=== PATIENT | female | born 1940 | race African-American/Black ===

== ENCOUNTER 2022-04-17 12:39 | Inpatient (IN) | payer MEDICAID, MEDICARE ==
[~2022-04-17] VITALS: Ht 152.4 cm; Wt 68.0 kg
--- NOTE | 2022-04-17 12:40 | NUR ---
MARINE ALS TAKEN TO BED 7
[2022-04-17 12:49] VITALS: BP 91/67
--- NOTE | 2022-04-17 12:49 | NUR ---
81 Y/O FEMALE BIBA HOME C/O WEAKNESS AND HIGH BLOOD GLUCOSE. BS AT [facility] WAS TOO HIGH, BS ON SCENE WAS TOO HIGH, TRIAGE BS WAS ALSO TOO HIGH. SKIN WARM AND DRY TO TOUCH. DENIES PAIN, N/V/D. AOX4. RESPERATIONS EVEN AND UNLABORED. NKA PMH: DM 2, HDL, HTN
[2022-04-17] MEDS ORDERED: NACL 0.9% 1,000 ML IV ONE ×2 (12:55→15:35)
--- NOTE | 2022-04-17 13:37 | NUR ---
PT AMBULATED TO BATHROOM WITH ASSISTANCE
--- NOTE | 2022-04-17 13:54 | NUR ---
XRAY AT BEDSIDE
--- NOTE | 2022-04-17 14:12 | NUR ---
LAB AT BEDSIDE
--- NOTE | 2022-04-17 14:20 | NUR ---
DR BEE AT BEDSIDE FOR EVAL
[2022-04-17 14:26] LABS: APPEARANCE,URINE CLEAR (CLEAR); BILIRUBIN,URINE NEGATIVE (NEGATIVE); BLOOD, URINE TRACE-I (NEGATIVE); COLOR,URINE YELLOW (YELLOW); LEUKOCYTE ESTERASE ,URINE NEGATIVE (NEGATIVE); NITRITE, URINE NEGATIVE (NEGATIVE); PH,URINE 5.5 (5.0-9.0); UGLUCOSE 3+ (NEGATIVE)
[2022-04-17 14:29] LABS: BASOPHILS % (AUTO) 0.4 % (0.0-2.0); EOSINOPHILS # (AUTO) 0.1 K/uL (0-0.4); HEMATOCRIT 35.8 % (36-48); HEMOGLOBIN 11.5 g/dL (12.0-16.0); LYMPHOCYTES # (AUTO) 1.6 K/uL (2.5-16.5); LYMPHOCYTES % (AUTO) 25.2 % (20.5-51.1); MEAN CORPUSCULAR HEMOGLOBIN 24 pg (27-31); MEAN CORPUSCULAR HGB CONC 32 g/dL (33-37); MEAN CORPUSCULAR VOLUME 76.1 fL (80-94); MONOCYTES # (AUTO) 0.5 K/uL (0.8-1.0); MONOCYTES % (AUTO) 7.4 % (1.7-9.3); NEUTROPHILS # (AUTO) 4.3 K/uL (1.8-7.7); PLATELET COUNT (AUTO) 178 K/uL (140-450); WHITE BLOOD COUNT (AUTO) 6.5 K/uL (4.8-10.8)
[2022-04-17 14:45] LABS: RBC,URINE NONE SEEN /HPF (0-5); WBC,URINE NONE SEEN /HPF (0-5)
[2022-04-17 14:46] LABS: TRICHOMONAS,URINE None Seen /HPF (None Seen); YEAST,URINE None Seen /HPF (None Seen)
[2022-04-17 15:24] LABS: ANION GAP 20.8 (8-16); CARBON DIOXIDE 20.6 mmol/L (21-32); CHLORIDE 94 mmol/L (98-107); CREATININE 2.1 mg/dL (0.6-1.3); POTASSIUM 4.4 mmol/L (3.5-5.1); SODIUM SERUM 131 mmol/L (136-145); UREA NITROGEN, BLOOD 54 mg/dL (7-18)
[2022-04-17 15:26] LABS: ALBUMIN 3.4 g/dL (3.4-5.0); ASPARTATE AMINOTRANSFERASE 19 U/L (15-37); GLUCOSE 673 mg/dL (74-106); TOTAL BILIRUBIN 0.3 mg/dL (0.0-1.0)
[2022-04-17] MEDS ORDERED: POTASSIUM CHLORIDE 10 MEQ TABER PO ONE (15:35)
[2022-04-17] MEDS ORDERED: INSULIN REGULAR, HUMAN 100 UNIT/ML VIAL IV ONE (15:35)
--- NOTE | 2022-04-17 16:34 | NUR ---
PT AMBULATED WITH ASSISTANCE TO BATHROOM
--- NOTE | 2022-04-17 17:10 | NUR ---
DR BEE AT BEDSIDE FOR IV PLACEMENT
--- NOTE | 2022-04-17 17:14 | NUR ---
DEVORA LOZANO AND DR BEE AT BEDSIDE FOR ALLAN GUIDED IV INSERTION
--- NOTE | 2022-04-17 17:45 | NUR ---
CALLED RANDI CLINTON [phone] REGARDING PT STATUS
[2022-04-17] MEDS ORDERED: HYDR25TA32 (17:57)
[2022-04-17] MEDS ORDERED: METF-346 (17:57)
[2022-04-17] MEDS ORDERED: AMLO10TA88 (17:57)
[2022-04-17] MEDS ORDERED: LOSA50TA57 (17:57)
[2022-04-17] MEDS ORDERED: CILO100T (17:57)
[2022-04-17] MEDS ORDERED: PIOG-4 (17:57)
--- NOTE | 2022-04-17 17:57 | NUR ---
PER FAMILY, PT SPEAKS BELLO [employer] FROM THE [facility] [place]
--- NOTE | 2022-04-17 18:19 | NUR ---
PT AMBULATED WITH STEADY GAIT TO BATHROOM
[2022-04-17] MEDS ORDERED: MELATONIN 3 MG TAB PO PRN (18:25)
--- NOTE | 2022-04-17 18:41 | NUR ---
OFFERED PT MELATONIN FOR SLEEP, STATED THAT SHE WANTED THE MEDICATION FOR SLEEP LATER AT AROUND 8-9 PM
--- NOTE | 2022-04-17 19:22 | NUR ---
Pt report given to PAN CHAVEZ. Transfer of care at this time.
[2022-04-17] MEDS ORDERED: MORPHINE SULFATE 2 MG/ML SYR IVP PRN (19:25)
[2022-04-17] MEDS ORDERED: HYDROcodone/APAP 5/325 MG 1 TAB TAB PO PRN (19:25)
--- NOTE | 2022-04-17 19:55 | NUR ---
PROVIDED COMMODE AND WIPES TO PT.
--- NOTE | 2022-04-17 20:06 | NUR ---
Provided bedside commode as request.
[2022-04-17] MEDS: BLOOD GLUCOSE MONITORING 1 DEV DEV FS SCH (21:07)
[2022-04-17] MEDS: INSULIN LISPRO SLIDING SCALE 100 UNITS/ML VIAL SUBQ PRN (21:51)
--- NOTE | 2022-04-17 21:52 | NUR ---
PT STATES SHE IS HUNGRY. OFFERED PT SANDWHICH AND SHE SAID IT WAS TOO COLD. WARMED UP SANDWHICH. THEN PT SAID SHE WANTED SOMETHIN ELSE. GAVE PT APPLESAUCE AND CRACKERS AND SHE DIDNT WANT THAT EITHER.
[2022-04-18] MEDS ORDERED: MAGNESIUM OXIDE 400 MG TAB PO PRN (00:10)
[2022-04-18] MEDS ORDERED: ONDANSETRON 4 MG/2 ML VIAL IM/IVP PRN (00:10)
[2022-04-18] MEDS ORDERED: MORPHINE SULFATE 2 MG/ML SYR IVP PRN (00:10)
[2022-04-18] MEDS ORDERED: ACETAMINOPHEN 325 MG TAB PO PRN (00:10)
[2022-04-18] MEDS ORDERED: POTASSIUM CHLORIDE 10 MEQ TABER PO PRN (00:10)
[2022-04-18] MEDS ORDERED: HYDROcodone/APAP 5/325 MG 1 TAB TAB PO PRN (00:10)
[2022-04-18] MEDS ORDERED: DOCUSATE SODIUM 100 MG GELCAP PO PRN (00:10)
[2022-04-18] MEDS ORDERED: SODIUM PHOS / POTASSIUM PHOS 1 PKT PDR PO PRN (00:10)
[2022-04-18 00:37] LABS: MAGNESIUM 2.4 mg/dL (1.8-2.4)
--- NOTE | 2022-04-18 02:09 | NUR ---
Patient appears to be resting comfortably in bed WITH EYES CLOSED. Vital Signs within normal limits. Respirations even and unlabored.
--- NOTE | 2022-04-18 02:27 | NUR ---
Assisted patient to use bedside commode.
--- NOTE | 2022-04-18 07:21 | NUR ---
Pt report given to brigitte. Transfer of care at this time.
[2022-04-18] MEDS: BLOOD GLUCOSE MONITORING 1 DEV DEV FS SCH ×4 (07:35→20:24)
[2022-04-18 08:00] VITALS: BP 154/84
[2022-04-18] MEDS: PANTOPRAZOLE 40 MG TABEC PO SCH (08:12)
--- NOTE | 2022-04-18 08:28 | NUR ---
Patient will be admitted to care of DR. SANCHEZ. Admited to TELEMETRY. Will go to room 124 B. Belongings list completed. Report to HUBER.
--- NOTE | 2022-04-18 08:30 | NUR ---
PT TRANSFERRED FROM ER TO BED 124B. REPORT RECEIVED FROM ER NURSE, ALL CARES ASSUMED. PT AMBULATED TO BED WITH ASSISTANCE. BED IN LOW AND LOCKED POSITION, CALL LIGHT WITHIN REACH.
--- NOTE | 2022-04-18 10:48 | NUR ---
PATIENT HAS BEEN SCREENED AND CATEGORIZED MODERATE NUTRITION RISK. PATIENT WILL BE SEEN WITHIN 3-5 DAYS OF ADMISSION. 04/18/22-04/22/[address]
[2022-04-18] MEDS: INSULIN LISPRO SLIDING SCALE 100 UNITS/ML VIAL SUBQ PRN ×3 (11:50→20:26)
[2022-04-18 12:00] VITALS: BP 166/81
[2022-04-18] MEDS ORDERED: SODIUM PHOS / POTASSIUM PHOS 1 PKT PDR PO SCH (15:50)
[2022-04-18 16:00] VITALS: BP 158/61
[2022-04-18 16:34] LABS: ANION GAP 12.5 (8-16); CARBON DIOXIDE 26.1 mmol/L (21-32); CHLORIDE 107 mmol/L (98-107); CREATININE 1.3 mg/dL (0.6-1.3); GLUCOSE 276 mg/dL (74-106); POTASSIUM 4.6 mmol/L (3.5-5.1); SODIUM SERUM 141 mmol/L (136-145); UREA NITROGEN, BLOOD 24 mg/dL (7-18)
[2022-04-18] MEDS: INSULIN LANTUS 100 UNITS/ML 10 ML VIAL SUBQ SCH (16:41)
[2022-04-18] MEDS: NACL 0.9% 1,000 ML IV SCH (17:06)
--- NOTE | 2022-04-18 19:32 | NUR ---
SBAR REPORT GIVEN TO HUONG JUAREZ, ALL CARES ENDORSED.
--- NOTE | 2022-04-18 19:34 | NUR ---
GET THE REPORT FROM MORNING NURSE, PATIENT IS SITTING ON BED AND HAVING DINNER AT THIS TIME, PATIENT IS ALERT ORIENTED X4, ALL FALL PRECAUTION MEASURE ARE IN PLACE, CALL LIGHT IS WITHIN THE REACH, WILL CONTINUE TO MONITOR PATIENT.
[2022-04-18 20:00] VITALS: BP 155/70
--- NOTE | 2022-04-18 20:31 | NUR ---
PATIENT IS LYING ON BED, VITAL SIGN IS WITHIN THE NORMAL RANGE, NO ANY COMPLAIN OF PAIN OR SHORTNESS OF BREATH AT THIS TIME, PATIENT BLOOD SUGAR IS 248, 4 UNIT INSULIN IS GIVEN PER DOCTOR ORDER, ALL SCHEDULE MEDICATION IS GIVEN PER DOCTOR ORDER, CALL LIGHT IS WITHIN THE REACH, WILL CONTINUE TO MONITOR PATIENT.
--- NOTE | 2022-04-18 23:01 | NUR ---
04/18/2022 RD INITIAL ASSESSMENT COMPLETED PLEASE REFER TO NUTRITION ASSESSMENT UNDER CARE ACTIVITY FOR ESTIMATED NUTRITIONAL NEEDS. 1.CONTINUE WITH CCHO 45 GM AND CARDIAC DIET 2.MONITOR BLOOD GLUCOSE 3.RD TO FOLLOW-UP IN 3-5 DAYS PATIENT IS MODERATE RISK. ZORA MERLOS, RD
[2022-04-19] VITALS: BP 140/80
--- NOTE | 2022-04-19 00:56 | NUR ---
PATIENT IS LYING ON BED, NO ANY COMPLAIN OF PAIN OR SHORTNESS OF BEATH AT THIS TIME ,VITAL SIGN IS WITHIN THE NORMAL RANGE, CALL LIGHT IS WITHIN THE REACH, WILL CONTINUE TO MONITOR PATIENT.
[2022-04-19] MEDS: NACL 0.9% 1,000 ML IV SCH ×2 (02:14→12:01)
[2022-04-19 04:00] VITALS: BP 162/79
--- NOTE | 2022-04-19 05:17 | NUR ---
RE CHECKED PATIENT BLOOD PRESSURE IS 175/79 HR: 86/MIN , MASSAGE DOCTOR STEWART ABOUT PRN MEDICATION AND WAITING FOR HIS RESPONSE, CALL LIGHT IS WITHIN THE REACH, WILL CONTINUE TO MONITOR PATIENT.
--- NOTE | 2022-04-19 05:25 | NUR ---
MASSAGE DOCTOR LAURA ALSO FOR PATIENT BLOOD PRESSURE MEDICATION , WAITING FOR DOCTOR TO RESPONSE, CALL LIGHT IS WITHIN THE REACH, WILL CONTINUE TO MONITOR PATIENT.
--- NOTE | 2022-04-19 05:35 | NUR ---
ASSESS THE PATIENT AND PATIENT IS SITTING ON BED AND BRUISING HER TEETH, ASK PATIENT ABOUT ANY PAIN OR DIZZINESS, PATIENT REPLAYED NO PAIN IM FINE, NO ANY RESPIRATORY DISTRESS NOTED , WILL REASSESS THE PATIENT BLOOD PRESSURE IN 15 MIN,CALL LIGHT IS WITHIN THE REACH, WILL CONTINUE TO MONITOR PATIENT.
[2022-04-19 05:55] LABS: BASOPHILS % (AUTO) 0.6 % (0.0-2.0); EOSINOPHILS # (AUTO) 0.2 K/uL (0-0.4); EOSINOPHILS % (AUTO) 4.8 % (0.0-4.0); HEMATOCRIT 38.2 % (36-48); HEMOGLOBIN 12.2 g/dL (12.0-16.0); LYMPHOCYTES # (AUTO) 1.9 K/uL (2.5-16.5); LYMPHOCYTES % (AUTO) 38.2 % (20.5-51.1); MEAN CORPUSCULAR HEMOGLOBIN 25 pg (27-31); MEAN CORPUSCULAR HGB CONC 32 g/dL (33-37); MEAN CORPUSCULAR VOLUME 76.6 fL (80-94); MONOCYTES # (AUTO) 0.4 K/uL (0.8-1.0); NEUTROPHILS # (AUTO) 2.4 K/uL (1.8-7.7); NEUTROPHILS % (AUTO) 47.4 % (42.2-75.2); PLATELET COUNT (AUTO) 190 K/uL (140-450); RED BLOOD CELL COUNT(AUTO) 4.99 MIL/uL (4.20-5.40); RED CELL DISTRIBUTION WIDTH 16.1 % (11.6-13.7)
[2022-04-19 06:18] LABS: ANION GAP 13.6 (8-16); CARBON DIOXIDE 27.6 mmol/L (21-32); CHLORIDE 107 mmol/L (98-107); CREATININE 1.2 mg/dL (0.6-1.3); GLUCOSE 175 mg/dL (74-106); POTASSIUM 4.2 mmol/L (3.5-5.1); SODIUM SERUM 144 mmol/L (136-145); UREA NITROGEN, BLOOD 20 mg/dL (7-18)
--- NOTE | 2022-04-19 06:22 | NUR ---
RECHECKED PATIENT BLOOD PRESSURE IS 164/60, HR72/MIN, STILL WAITING FOR DOCTOR STEWART TO RESPONSE, CALL LIGHT IS WITHIN THE REACH, WILL CONTINUE TO MONITOR PATIENT,
[2022-04-19] MEDS: BLOOD GLUCOSE MONITORING 1 DEV DEV FS SCH ×2 (06:35→12:01)
[2022-04-19] MEDS: INSULIN LISPRO SLIDING SCALE 100 UNITS/ML VIAL SUBQ PRN ×2 (06:36→12:29)
--- NOTE | 2022-04-19 06:37 | NUR ---
PATIENT BLOOD SUGAR IS 170, 2 UNIT INSULIN IS GIVEN PER DOCTOR ORDER, , CALL LIGHT IS WITHIN THE REACH, WILL CONTINUE TO MONITOR PATIENT.
[2022-04-19] MEDS ORDERED: hydrALAZINE 20 MG/ML VIAL IVP PRN (06:45)
--- NOTE | 2022-04-19 06:49 | NUR ---
DOCTOR STEWART REPLIED BACK WITH HYDRALAZINE 10MG IVP Q6H PRN FOR SBP >160, WILL FOLLOW THE DOCTOR ORDER, AND CARRIED OUT, CALL LIGHT IS WITHIN THE REACH,WILL CONTINUE TO MONITOR PATIENT.
--- NOTE | 2022-04-19 07:02 | NUR ---
GAVE HYDRALAZINE 10 MG 0.5 ML IV PRN FOR > 160 PER DOCTOR ORDER, WILL REASSESS PATIENT BLOOD PRESSURE IN HOUR, CALL LIGHT IS WITHIN THE REACH, WILL CONTINUE TO MONITOR PATIENT.
--- NOTE | 2022-04-19 07:25 | NUR ---
GAVE THE REPORT TO MORNING NURSE LILA FOR CONTINUOS OF CARE, PATIENT IS STABLE.
--- NOTE | 2022-04-19 07:26 | NUR ---
RECEIVED BEDSIDE REPORT FROM COMMUTATOR INSPECTOR NURSE FOR CONTINUOUS OF CARE, PT ALERT ORIENTED, ABLE TO LET NEEDS KNOWN, PT RESTING, NO DISTRESS NOTED, PT ON ROOM AIR NO SOB NOTED, IV TO LEFT FA 24G PATENT INTACT, RUNNING NS @ 100ML/HR. INITIAL ASSESSMENT DONE, ALL SAFETY PRECAUTION MET, CALL LIGHT WITHIN REACH, WILL CONTINUE TO MONITOR.
[2022-04-19 08:00] VITALS: BP 152/58
[2022-04-19] MEDS ORDERED: hydroCHLOROthiazide 25 MG TAB PO SCH (09:00)
[2022-04-19] MEDS ORDERED: LOSARTAN 50 MG TAB PO SCH (09:00)
[2022-04-19] MEDS: PANTOPRAZOLE 40 MG TABEC PO SCH (09:18)
[2022-04-19] MEDS: INSULIN LANTUS 100 UNITS/ML 10 ML VIAL SUBQ SCH (09:22)
--- NOTE | 2022-04-19 09:22 | NUR ---
DUE MEDICATIONS ADMINISTERED, PT TOLERATED WELL, NO DISTRESS NOTED, WILL CONTINUE TO MONITOR.
[2022-04-19 12:00] VITALS: BP 148/61
--- NOTE | 2022-04-19 12:22 | NUR ---
DUE MEDICATIONS ADMINISTERED, PT TOLERATED WELL, WILL CONTINUE TO MONITOR
[2022-04-19] MEDS ORDERED: METF-352 PO (12:36)
[2022-04-19] MEDS ORDERED: PIOG-4 PO (12:36)
--- NOTE | 2022-04-19 14:20 | NUR ---
DISCHARGE INSTRUCTION GIVEN, PT DOES UNDERSTAND SOME BHUTANESE, NO BELLO INTREPRETER AVAILABLE. CALLED SON, NO ANSWER LEFT MESSAGE. PT STATED UNDERSTANDING, IV TAKEN OUT, CATH INTACT.
--- NOTE | 2022-04-19 14:25 | NUR ---
PT LEFT UNIT, PICKED UP BY DAUGHTER IN LAW IN LOBBY. PT IN STABLE CONDITION.
--- NOTE | 2022-04-19 15:20 | NUR ---
DC PLANNING: THE PATIENT PRESENTED FROM HOME BY AMBULANCE FOR HYPERGLYCEMIA PER HER GLUCOMETER READING. H/O DM, HTN, GLUCOSE IN ED 673, CR 2.1, NA+ 131, GAP 16. GIVEN IVF'S, HUMULIN AND K DUR. CONSULT ORDERED WITH NEPHROLOGY. CM MET WITH THE PATIENT AT BEDSIDE, HER PRIMARY LANGUAGE IS BELLO, CM SPOKE WITH HER SON LUIS BY PHONE. THE PATIENT LIVES IN A SINGLE STORY HOUSE WITH HER SON AND DAUGHTER IN LAW ([phone]). SHE IS INDEPENDENT IN ALL ACTIVITIES AND HAS NO DME OR H/O HOME HEALTH. HER SON WOULD HOME HEALTH FOLLOW UP, ORDER RECEIVED, CM FAXED TO HER INSURANCE PROMED FOR AUTHORIZATION AND DIRECTION ON WHICH H.H. AGENCY TO USE. THE PATIENT WILL DC HOME WITH FAMILY AND HER DAUGHTER IN LAW WILL PROVIDE TRANSPORT. CM WILL FOLLOW.
== END 2022-04-19 14:25 | disposition home or self-care (01) | DRG 420 ==
LOC: MED 12:39 → MTU 18:13
PROVIDERS: ADMIT Hospitalist; ATTEND Hospitalist
DX: E11.10 Type 2 diabetes mellitus with ketoacidosis without coma (principal); N17.0 Acute kidney failure with tubular necrosis; E11.65 Type 2 diabetes mellitus with hyperglycemia; E87.1 Hypo-osmolality and hyponatremia; I10 Essential (primary) hypertension; E83.39 Other disorders of phosphorus metabolism; Z20.822 Contact with and (suspected) exposure to COVID-19
CPT/HCPCS: 36415; 71045; 80048; 80053; 81001; 82803; 82948; 83735; 83880; 84100; 84484; 85025; 93005; 96361; 96374; 99285; J0360; J1815; J2270; J7030